=== PATIENT | female | born 1980 | race Hispanic/Latino ===

== ENCOUNTER 2017-05-26 16:40 | Emergency (ER) | payer MEDICARE ==
[~2017-05-26 16:40] MED LIST: ATEN25TA PO; ATOR10 PO; CLON2TAB4 PO; DESL5TAB28 PO; DICL150D4 TP; DULO60CA63 PO; ESTR2TAB PO; HYDR-4068 PO; INSU100C6 SQ; INSU100I4 SQ; LEVO50TA11 PO; LIDOP TP; LITH300T4 PO; LITHIUM PO; METF-527 PO; MONT10TA24 PO; MULT-1203 PO; OMEP20CA10 PO; QUET25TA74 PO
[2017-05-26] MEDS ORDERED: HYOSCYAMINE SULFATE 0.125 MG TAB.SUBL SL ONE (17:58)
[2017-05-26] MEDS ORDERED: LIDOCAINE HCL 2% VISCOUS 15 ML UDCUP ONE (18:01)
[2017-05-26] MEDS ORDERED: MAG HYDROX/AL HYDROX/SIMETH ES 30 ML SUSP UDCUP ONE (18:01)
[2017-05-26 18:08] LABS: EOSINOPHILS % (AUTO) 2.8 % (0.0-8.0); LYMPHOCYTES % (AUTO) 26.9 % (21.0-51.0); MEAN CORPUSCULAR HEMOGLOBIN 29.5 pg (27.0-33.0); MEAN CORPUSCULAR HGB CONC 34.9 g/dL (32.0-36.0); MEAN CORPUSCULAR VOLUME 84.3 fL (79-99); MONOCYTES % (AUTO) 8.4 % (3.0-13.0); NEUTROPHILS % (AUTO) 60.9 % (40.0-77.0); PLATELET COUNT (AUTO) 386 K/uL (130-400); RED BLOOD CELL COUNT(AUTO) 4.15 MIL/uL (4.00-5.50); RED CELL DISTRIBUTION WIDTH 14.3 % (11.0-15.5); WHITE BLOOD COUNT (AUTO) 8.6 K/uL (4.8-10.8)
[2017-05-26 18:16] LABS: APPEARANCE,URINE Clear (CLEAR); BILIRUBIN,URINE Negative (NEGATIVE); COLOR,URINE Yellow (YELLOW); GLUCOSE, URINE (UA) Negative (NEGATIVE); KETONES,URINE Negative (NEGATIVE); LEUKOCYTE ESTERASE ,URINE Negative (NEGATIVE); NITRATE,URINE Negative (NEGATIVE); OCCULT BLOOD,URINE Negative (NEGATIVE); PH,URINE 6.5 (5.0-8.0); PROTEIN,URINE Negative (NEGATIVE); UROBILINOGEN,URINE 0.2 mg/dL (0.2-1.0)
[2017-05-26 18:25] LABS: CREATININE 1.1 mg/dL (0.5-1.5); POTASSIUM 4.5 mmol/L (3.5-5.1)
[2017-05-26 18:29] LABS: ALBUMIN 3.5 g/dL (3.5-5.0); BILIRUBIN,TOTAL 0.2 mg/dL (0.2-1.0); TOTAL PROTEIN, SERUM 6.9 g/dL (6.0-8.3)
[2017-05-26] MEDS ORDERED: ONDANSETRON HCL MDV 20ML 2 MG/ML VIAL ONE ×2 (18:52→20:54)
[2017-05-26] MEDS ORDERED: MORPHINE SULFATE 2 MG/ML 1ML SYG ONE ×2 (18:52→20:55)
[2017-05-26] MEDS ORDERED: IOPAMIDOL-370 75 ML VIAL IV ONE (19:33)
== END 2017-05-26 21:47 | disposition home or self-care (01) ==
LOC: EDH 16:40
DX: R10.11 Right upper quadrant pain (principal); E11.9 Type 2 diabetes mellitus without complications; I10 Essential (primary) hypertension; E78.5 Hyperlipidemia, unspecified; E07.9 Disorder of thyroid, unspecified; G43.909 Migraine, unspecified, not intractable, without status migrainosus; Z88.1 Allergy status to other antibiotic agents; Z88.8 Allergy status to other drugs, medicaments and biological substances
CPT/HCPCS: 36415; 74177; 80053; 81003; 83690; 85025; 96374; 96375; 96376; 99285; Q9967

== ENCOUNTER 2017-11-12 16:21 | Emergency (ER) | payer MEDICARE ==
[~2017-11-12 16:21] MED LIST changes: +CLON2TAB11 PO; -CLON2TAB4 PO
[2017-11-12] MEDS ORDERED: ONDANSETRON HCL 4 MG/2 ML VIAL ONE ×2 (16:41→18:19)
[2017-11-12 16:48] LABS: BASOPHILS % (AUTO) 0.6 % (0.0-5.0); EOSINOPHILS % (AUTO) 1.4 % (0.0-8.0); HEMATOCRIT 38.7 % (36-48); LYMPHOCYTES % (AUTO) 21.3 % (21.0-51.0); MEAN CORPUSCULAR HEMOGLOBIN 28.1 pg (27.0-33.0); MEAN CORPUSCULAR VOLUME 85.1 fL (79-99); MONOCYTES % (AUTO) 8.1 % (3.0-13.0); NEUTROPHILS % (AUTO) 68.6 % (40.0-77.0); NUCLEATED RED BLOOD CELLS 0.1 % (0.0-0.19); PLATELET COUNT (AUTO) 346 K/uL (130-400); RED BLOOD CELL COUNT(AUTO) 4.55 MIL/uL (4.00-5.50); RED CELL DISTRIBUTION WIDTH 13.3 % (11.0-15.5); WHITE BLOOD COUNT (AUTO) 11.8 K/uL (4.8-10.8)
[2017-11-12 17:03] LABS: INR 0.94 (0.85-1.15); PARTIAL THROMBOPLASTIN TIME 26.3 SEC (26.3-35.5); PROTHROMBIN TIME 9.9 SEC (9.6-11.6)
[2017-11-12 17:05] LABS: POTASSIUM 4.4 mmol/L (3.5-5.1)
[2017-11-12] MEDS ORDERED: ASPIRIN 325 MG TABLET ONE (17:09)
[2017-11-12 17:13] LABS: ALBUMIN 3.5 g/dL (3.5-5.0); BILIRUBIN,TOTAL 0.3 mg/dL (0.2-1.0); TOTAL PROTEIN, SERUM 7.4 g/dL (6.0-8.3)
[2017-11-12 17:20] LABS: B-TYPE NATRIURETIC PEPTIDE 19 pg/mL (0-100)
[2017-11-12] MEDS ORDERED: MORPHINE SULFATE 4 MG/1ML SYG ONE (18:19)
== END 2017-11-12 19:32 | disposition home or self-care (01) ==
LOC: EDH 16:21
DX: R07.89 Other chest pain (principal); I10 Essential (primary) hypertension; E78.5 Hyperlipidemia, unspecified; G43.909 Migraine, unspecified, not intractable, without status migrainosus; E11.9 Type 2 diabetes mellitus without complications; E07.9 Disorder of thyroid, unspecified; F41.9 Anxiety disorder, unspecified; F31.9 Bipolar disorder, unspecified; Z88.1 Allergy status to other antibiotic agents; Z88.8 Allergy status to other drugs, medicaments and biological substances; Z91.040 Latex allergy status; Z88.6 Allergy status to analgesic agent; Z90.710 Acquired absence of both cervix and uterus; Z98.890 Other specified postprocedural states
CPT/HCPCS: 36415; 71045; 80053; 82550; 83874; 83880; 84484 ×2; 85025; 85610; 85730; 93005 ×2; 94761; 96374; 96375; 96376; 99285; J2270; J2405 ×2

== ENCOUNTER 2018-02-15 12:49 | Emergency (ER) | payer MEDICARE ==
[2018-02-15] MEDS ORDERED: TETANUS/DIPHTHERIA TOXOID [ADULT] 0.5 ML VIAL IM ONE (12:58)
[2018-02-15] MEDS ORDERED: OCTYL 2-CYANOACRYLATE 1 EACH TP ONE (13:01)
== END 2018-02-15 13:31 | disposition home or self-care (01) ==
LOC: EDH 12:49
DX: S61.412A Laceration without foreign body of left hand, initial encounter (principal); E11.9 Type 2 diabetes mellitus without complications; E78.5 Hyperlipidemia, unspecified; F41.9 Anxiety disorder, unspecified; F31.9 Bipolar disorder, unspecified; G43.909 Migraine, unspecified, not intractable, without status migrainosus; E07.9 Disorder of thyroid, unspecified; Z88.1 Allergy status to other antibiotic agents; Z91.041 Radiographic dye allergy status; Z88.8 Allergy status to other drugs, medicaments and biological substances; W26.8XXA Contact with other sharp object(s), not elsewhere classified, initial encounter; Y93.G3 Activity, cooking and baking; Y92.098 Other place in other non-institutional residence as the place of occurrence of the external cause; Y99.8 Other external cause status
CPT/HCPCS: 12002; 90471; 90714

== ENCOUNTER 2018-03-05 22:22 | Emergency (ER) | payer MEDICARE ==
[2018-03-05] MEDS ORDERED: KETOROLAC TROMETHAMINE 60 MG/2 ML VIAL ONE (23:53)
[2018-03-05] MEDS ORDERED: DIAZEPAM 5 MG TABLET ONE (23:53)
== END 2018-03-06 01:01 | disposition home or self-care (01) ==
LOC: EDH 22:22
DX: S29.012A Strain of muscle and tendon of back wall of thorax, initial encounter (principal); M54.2 Cervicalgia; E11.9 Type 2 diabetes mellitus without complications; E78.5 Hyperlipidemia, unspecified; F41.9 Anxiety disorder, unspecified; F31.9 Bipolar disorder, unspecified; E07.9 Disorder of thyroid, unspecified; G43.909 Migraine, unspecified, not intractable, without status migrainosus; Z88.1 Allergy status to other antibiotic agents; Z91.041 Radiographic dye allergy status; Z90.710 Acquired absence of both cervix and uterus; Z98.890 Other specified postprocedural states; V49.59XA Passenger injured in collision with other motor vehicles in traffic accident, initial encounter; Y93.89 Activity, other specified; Y92.89 Other specified places as the place of occurrence of the external cause; Y99.8 Other external cause status
CPT/HCPCS: 96372; 99283; J1885

== ENCOUNTER 2019-04-19 12:15 | Emergency (ER) | payer MEDICARE ==
[~2019-04-19 12:15] MED LIST changes: -DESL5TAB28 PO; +DESL5TAB45 PO; -DULO60CA63 PO; +DULO60CA64 PO; -MONT10TA24 PO; +MONT10TA26 PO; -OMEP20CA10 PO; +OMEP20CA12 PO
[2019-04-19] MEDS ORDERED: ASPIRIN 325 MG TABLET ONE (12:49)
[2019-04-19 13:04] LABS: BASOPHILS % (AUTO) 0.8 % (0.0-5.0); HEMATOCRIT 39.1 % (36-48); LYMPHOCYTES % (AUTO) 23.1 % (21.0-51.0); MEAN CORPUSCULAR HGB CONC 32.7 g/dL (32.0-36.0); MEAN CORPUSCULAR VOLUME 79.3 fL (79-99); MONOCYTES % (AUTO) 7.6 % (3.0-13.0); NEUTROPHILS % (AUTO) 66.2 % (40.0-77.0); PLATELET COUNT (AUTO) 360 K/uL (130-400); RED BLOOD CELL COUNT(AUTO) 4.93 MIL/uL (4.00-5.50); RED CELL DISTRIBUTION WIDTH 15.3 % (11.0-15.5); WHITE BLOOD COUNT (AUTO) 9.5 K/uL (4.8-10.8)
[2019-04-19 13:05] LABS: CREATININE 1.1 mg/dL (0.5-1.5); POTASSIUM 4.4 mmol/L (3.5-5.1)
[2019-04-19 13:10] LABS: INR 0.93 (0.85-1.15); PARTIAL THROMBOPLASTIN TIME 26.4 SEC (26.3-35.5); PROTHROMBIN TIME 9.8 SEC (9.6-11.6)
[2019-04-19 13:11] LABS: ALBUMIN 3.4 g/dL (3.5-5.0); BILIRUBIN,TOTAL 0.2 mg/dL (0.2-1.0); TOTAL PROTEIN, SERUM 7.4 g/dL (6.0-8.3)
[2019-04-19 13:19] LABS: HCG,QUAL RESULT NEGATIVE (NEGATIVE)
[2019-04-19 13:23] LABS: AMPHET/METH SCREEN,URINE NEGATIVE (NEGATIVE); BARBITURATE SCREEN, URINE NEGATIVE (NEGATIVE); BENZODIAZEPINES SCREEN,URINE NEGATIVE (NEGATIVE); CANNABINOID SCREEN,URINE NEGATIVE (NEGATIVE); COCAINE SCREEN,URINE NEGATIVE (NEGATIVE); OPIATE SCREEN,URINE NEGATIVE (NEGATIVE); PHENCYCLIDINE SCREEN,URINE NEGATIVE (NEGATIVE)
== END 2019-04-19 17:18 | disposition home or self-care (01) ==
LOC: EDH 12:15
DX: R07.89 Other chest pain (principal); R00.1 Bradycardia, unspecified; E11.9 Type 2 diabetes mellitus without complications; F31.9 Bipolar disorder, unspecified; G43.909 Migraine, unspecified, not intractable, without status migrainosus; Z90.49 Acquired absence of other specified parts of digestive tract; Z90.710 Acquired absence of both cervix and uterus; Z88.2 Allergy status to sulfonamides; Z88.1 Allergy status to other antibiotic agents; Z88.6 Allergy status to analgesic agent; Z91.040 Latex allergy status; Z88.7 Allergy status to serum and vaccine
CPT/HCPCS: 36415; 71045; 80053; 80305; 81025; 82550; 84484; 85025; 85378; 85610; 85730; 93005

== ENCOUNTER 2019-04-26 21:29 | Inpatient (IN) | payer MEDICARE ==
[~2019-04-26] VITALS: Ht 172.7 cm; Wt 72.8 kg
[2019-04-26 21:58] LABS: BASOPHILS % (AUTO) 0.8 % (0.0-5.0); EOSINOPHILS % (AUTO) 2.9 % (0.0-8.0); LYMPHOCYTES % (AUTO) 28.8 % (21.0-51.0); MEAN CORPUSCULAR HEMOGLOBIN 25.7 pg (27.0-33.0); MEAN CORPUSCULAR HGB CONC 32.2 g/dL (32.0-36.0); MEAN CORPUSCULAR VOLUME 79.9 fL (79-99); MONOCYTES % (AUTO) 9.6 % (3.0-13.0); NEUTROPHILS % (AUTO) 57.5 % (40.0-77.0); PLATELET COUNT (AUTO) 378 K/uL (130-400); RED BLOOD CELL COUNT(AUTO) 5.13 MIL/uL (4.00-5.50); RED CELL DISTRIBUTION WIDTH 15.3 % (11.0-15.5); WHITE BLOOD COUNT (AUTO) 10.8 K/uL (4.8-10.8)
[2019-04-26 22:14] LABS: INR 0.95 (0.85-1.15)
[2019-04-26 22:30] LABS: CREATININE 1.2 mg/dL (0.5-1.5); POTASSIUM 3.9 mmol/L (3.5-5.1)
[2019-04-26] MEDS ORDERED: ASPIRIN 325 MG TABLET ONE (22:33)
[2019-04-26] MEDS ORDERED: ONDANSETRON HCL 4 MG/2 ML VIAL ONE (22:33)
[2019-04-26 22:34] LABS: ALBUMIN 3.8 g/dL (3.5-5.0); BILIRUBIN,TOTAL 0.2 mg/dL (0.2-1.0); TOTAL PROTEIN, SERUM 7.9 g/dL (6.0-8.3)
[2019-04-26 23:16] LABS: APPEARANCE,URINE Clear (CLEAR); BILIRUBIN,URINE Negative (NEGATIVE); COLOR,URINE Yellow (YELLOW); GLUCOSE, URINE (UA) Negative (NEGATIVE); KETONES,URINE Negative (NEGATIVE); LEUKOCYTE ESTERASE ,URINE Negative (NEGATIVE); NITRATE,URINE Negative (NEGATIVE); OCCULT BLOOD,URINE Negative (NEGATIVE); PH,URINE 6.5 (5.0-8.0); PROTEIN,URINE Negative (NEGATIVE); UROBILINOGEN,URINE 0.2 mg/dL (0.2-1.0)
[2019-04-26 23:39] LABS: MAGNESIUM 1.9 mg/dL (1.80-2.40); THYROID STIMULATING HORMONE 1.71 uIU/mL (0.36-3.74)
[2019-04-27] VITALS (7 sets, daily range): BP systolic 110–139; BP diastolic 56–88
[2019-04-27] MEDS ORDERED: LIDOCAINE HCL-MPF 1% 2ML VIAL IV PRN (00:30)
[2019-04-27] MEDS ORDERED: LACTULOSE 20 GM/30 ML UDCUP PO PRN (00:30)
[2019-04-27] MEDS ORDERED: ONDANSETRON HCL 4 MG/2 ML VIAL IV PRN (00:30)
[2019-04-27] MEDS ORDERED: MORPHINE SULFATE 2 MG/ML 1ML SYG IV PRN (00:30)
[2019-04-27] MEDS ORDERED: POTASSIUM CHLORIDE 20MEQ/100ML 100 ML IV PRN (00:30)
[2019-04-27] MEDS ORDERED: ACETAMINOPHEN 325 MG TAB PO PRN ×2 (00:30)
[2019-04-27] MEDS ORDERED: MAGNESIUM 2GM PREMIX 50ML 50 ML IV PRN (00:30)
[2019-04-27] MEDS ORDERED: POTASSIUM CHLORIDE 10% ELIXIR 20 MEQ/15 ML UDCUP PO PRN (00:30)
[2019-04-27] MEDS: HEPARIN SODIUM 5000UNIT/ML 1ML VIAL SQ SCH ×3 (00:30→23:50)
[2019-04-27] MEDS ORDERED: NITROGLYCERIN 0.4 MG SL TAB SL PRN (00:30)
[2019-04-27] MEDS ORDERED: GLUCAGON 1MG KIT 1 MG ML IM PRN (00:30)
[2019-04-27] MEDS ORDERED: HYDRALAZINE HCL 20 MG/ML VIAL IV PRN (00:30)
[2019-04-27] MEDS ORDERED: POTASSIUM CHLORIDE 20 MEQ ERTAB PO PRN (00:30)
[2019-04-27] MEDS ORDERED: SODIUM CHLORIDE 0.9% 1000ML 1,000 ML IV SCH (00:30)
[2019-04-27] MEDS ORDERED: DEXTROSE 50%-WATER 50 ML DISP.SYRIN IV PRN (00:30)
[2019-04-27] MEDS ORDERED: SODIUM CHLORIDE 0.9% 1000ML 1,000 ML IV ONE (00:53)
[2019-04-27 04:55] LABS: BASOPHILS % (AUTO) 0.7 % (0.0-5.0); EOSINOPHILS % (AUTO) 2.6 % (0.0-8.0); HEMATOCRIT 35.6 % (36-48); LYMPHOCYTES % (AUTO) 32.2 % (21.0-51.0); MEAN CORPUSCULAR HEMOGLOBIN 25.6 pg (27.0-33.0); MONOCYTES % (AUTO) 8.9 % (3.0-13.0); NEUTROPHILS % (AUTO) 55.3 % (40.0-77.0); PLATELET COUNT (AUTO) 349 K/uL (130-400); RED BLOOD CELL COUNT(AUTO) 4.45 MIL/uL (4.00-5.50); RED CELL DISTRIBUTION WIDTH 15.3 % (11.0-15.5); WHITE BLOOD COUNT (AUTO) 9.6 K/uL (4.8-10.8)
[2019-04-27 05:04] LABS: CREATININE 1.7 mg/dL (0.5-1.5); POTASSIUM 4.2 mmol/L (3.5-5.1)
[2019-04-27 05:08] LABS: BILIRUBIN,TOTAL 0.2 mg/dL (0.2-1.0); MAGNESIUM 1.9 mg/dL (1.80-2.40); TOTAL PROTEIN, SERUM 6.4 g/dL (6.0-8.3)
[2019-04-27] MEDS ORDERED: BISA5TAB12 PO (07:29)
[2019-04-27] MEDS ORDERED: ZOLP5TAB8 PO (07:29)
[2019-04-27] MEDS ORDERED: HYDR50CA50 PO (07:29)
[2019-04-27] MEDS ORDERED: BUSP30TA2 PO (07:29)
[2019-04-27] MEDS ORDERED: HYDR-4030 PO (07:29)
[2019-04-27] MEDS ORDERED: LEVO5TAB13 PO (07:29)
[2019-04-27] MEDS ORDERED: GABA-531 PO (07:29)
[2019-04-27] MEDS ORDERED: PALI6TAB PO (07:29)
[2019-04-27] MEDS ORDERED: TRAZ-187 PO (07:29)
[2019-04-27] MEDS ORDERED: METF-444 PO (07:29)
[2019-04-27] MEDS ORDERED: ERGO2000 PO (07:29)
[2019-04-27] MEDS ORDERED: LEVO88TA7 PO (07:29)
[2019-04-27] MEDS ORDERED: DEXL60CA3 PO (07:29)
[2019-04-27] MEDS ORDERED: DOCU100T PO (07:29)
[2019-04-27] MEDS ORDERED: LITH600C PO (07:29)
[2019-04-27] MEDS: INSULIN HUMULIN R 100 UNIT/ML 3ML SQ SCH ×4 (07:30→21:00)
--- NOTE | 2019-04-27 07:40 | NUR ---
ASSESSMENT ENCOUNTERED PT A&OX3, CALM COOPERATIVE AND DOES NOT APPEAR TO BE IN ANY DISTRESS NOR ANY NEURO DEFICITS PRESENT. PT DENIES SOB, NAUSEA BUT DOES HAVE DISCOMFORT TO LEFT LATERAL CHEST, AXILLA AND SHOULDER. PT IS ABLE TO TOLERATE FOODS, FLUIDS AND MEDICATION WITH NO THROAT CLEARING OR COUGH. PT IS AMBULATORY, GAIT STEADY AND STRONG WITH STAND BY ASSIST. CALL LIGHT WITHIN REACH, FAMILY AT BEDSIDE.
[2019-04-27] MEDS ORDERED: FAMOTIDINE 20MG TAB 20 MG TAB PO SCH (09:00)
[2019-04-27] MEDS ORDERED: HYDROXYZINE PAMOATE 50 MG PO SCH ×2 (13:15→21:00)
[2019-04-27] MEDS ORDERED: ERGOCALCIFEROL PO SCH (13:15)
[2019-04-27] MEDS ORDERED: BISACODYL 5 MG TABLET.DR PO PRN (13:15)
[2019-04-27 14:19] LABS: POTASSIUM 4.2 mmol/L (3.5-5.1)
[2019-04-27] MEDS ORDERED: IOHEXOL-350 75 ML VIAL IV ONE (14:29)
--- NOTE | 2019-04-27 15:16 | NUR ---
INITIAL Patient lives with spouse, Garcia Wiseman, [phone]. No home health but does have PHC with [facility] hours. DME: shower chair, nebulizer, wheelchair, cane. Patient needs help with ADL's and does not drive. PCP is Dr. Johny Nielson. Pharmacy is [facility] located on [facility] [address] in [place]. DCP is home. Addendum: 04/27/19 at 1518 by PHILLIP SANCHEZ Amended: Links added.
[2019-04-27] MEDS: ASPIRIN 81MG TAB.CHEW PO SCH (15:34)
[2019-04-27] MEDS: METFORMIN HCL 500 MG TABLET PO SCH (17:57)
[2019-04-27] MEDS ORDERED: GABAPENTIN 300 MG CAPSULE ONE (18:00)
[2019-04-27] MEDS: GABAPENTIN 300 MG CAPSULE PO SCH (18:02)
[2019-04-27] MEDS: BUSPIRONE HCL 30 MG PO SCH (18:04)
[2019-04-27] MEDS: LITHIUM CARBONATE 300 MG PO SCH (18:04)
[2019-04-27] MEDS ORDERED: LITHIUM CARBONATE 300 MG PO SCH (21:00)
[2019-04-27] MEDS: MONTELUKAST SODIUM 10 MG TAB PO SCH (21:06)
[2019-04-27] MEDS: TRAZODONE HCL 100 MG TABLET PO SCH (21:07)
[2019-04-27] MEDS: ZOLPIDEM TARTRATE 5 MG TAB PO SCH (21:07)
[2019-04-27] MEDS: HYDROXYZINE PAMOATE 50 MG PO SCH (21:08)
[2019-04-28 04:06] VITALS: BP 114/77
[2019-04-28 05:46] LABS: POTASSIUM 3.8 mmol/L (3.5-5.1)
[2019-04-28] MEDS: INSULIN HUMULIN R 100 UNIT/ML 3ML SQ SCH ×4 (05:51→20:56)
[2019-04-28] MEDS: LEVOTHYROXINE 88 MCG TABLET PO SCH (05:58)
[2019-04-28] MEDS ORDERED: NON-FORMULARY MEDICATION 1 EACH (Levothyroxine Sodium 88 MCG) PO SCH (07:30)
--- NOTE | 2019-04-28 07:30 | NUR ---
ASSESSMENT ENCOUNTERED PT A&OX3, CALM COOPERATIVE AND DOES NOT APPEAR TO BE IN ANY DISTRESS NOR ANY NEURO DEFICITS PRESENT. PT DENIES SOB, NAUSEA, AND PAIN. PT IS NPO PENDING LEXISCAN. CALL LIGHT WITHIN REACH, FAMILY AT BEDSIDE.
[2019-04-28] MEDS ORDERED: AZEL137S11 NASAL (08:30)
[2019-04-28] MEDS ORDERED: ESTRADIOL 2 MG PO SCH (09:00)
[2019-04-28] MEDS ORDERED: NON-FORMULARY MEDICATION 1 EACH (Docusate Sodium 100 MG) PO SCH (09:00)
[2019-04-28] MEDS ORDERED: LITHIUM CARBONATE 600 MG PO SCH (09:00)
[2019-04-28] MEDS ORDERED: NON-FORMULARY MEDICATION 1 EACH (Levocetirizine Dihydrochloride 5 MG) PO SCH (09:00)
[2019-04-28] MEDS ORDERED: ATORVASTATIN CALCIUM 10 MG TABLET PO SCH (09:00)
[2019-04-28] MEDS: METFORMIN HCL 500 MG TABLET PO SCH ×2 (09:00→21:00)
[2019-04-28 09:01] VITALS: BP 121/78
[2019-04-28] MEDS ORDERED: REGADENOSON 0.4 MG/5 ML PF SYG IVP SCH (10:30)
[2019-04-28 11:00] VITALS: BP 119/77
[2019-04-28] MEDS: ASPIRIN 81MG TAB.CHEW PO SCH (11:33)
[2019-04-28] MEDS: GABAPENTIN 300 MG CAPSULE PO SCH ×2 (11:33→18:24)
[2019-04-28] MEDS: DOCUSATE SODIUM 100 MG CAP PO SCH (11:33)
[2019-04-28] MEDS: LEVOCETIRIZINE 5MG PO SCH (11:35)
[2019-04-28] MEDS: LITHIUM CARBONATE 600 MG CAPSULE PO SCH (11:36)
[2019-04-28] MEDS: ESTRADIOL 2MG PO SCH (11:37)
[2019-04-28] MEDS: BUSPIRONE HCL 30 MG PO SCH ×2 (11:38→18:25)
[2019-04-28] MEDS ORDERED: HYDROXYZINE HCL 25 MG TABLET PO SCH (14:00)
[2019-04-28] MEDS: HYDROXYZINE PAMOATE 50 MG PO SCH ×2 (14:12→22:32)
[2019-04-28 15:00] VITALS: BP 137/89
[2019-04-28] MEDS: LITHIUM CARBONATE 300 MG PO SCH (18:25)
[2019-04-28 18:58] VITALS: BP 105/46
--- NOTE | 2019-04-28 20:30 | NUR ---
PATIENT REQUESTED TO TAKE 2100 MEDS AT 2330 Addendum: 04/28/19 at 2149 by ANTHONY LONG RN RN MEDS AT 2230
[2019-04-28] MEDS ORDERED: ATORVASTATIN CALCIUM 20 MG TABLET PO SCH (21:00)
[2019-04-28] MEDS: HEPARIN SODIUM 5000UNIT/ML 1ML VIAL SQ SCH (21:00)
[2019-04-28] MEDS: ZOLPIDEM TARTRATE 5 MG TAB PO SCH (22:29)
[2019-04-28] MEDS: MONTELUKAST SODIUM 10 MG TAB PO SCH (22:30)
[2019-04-28] MEDS: TRAZODONE HCL 100 MG TABLET PO SCH (22:32)
[2019-04-28 23:28] VITALS: BP 117/69
[2019-04-29] VITALS (9 sets, daily range): BP systolic 105–123; BP diastolic 72–85
[2019-04-29] MEDS: LEVOTHYROXINE 88 MCG TABLET PO SCH (06:12)
[2019-04-29] MEDS: INSULIN HUMULIN R 100 UNIT/ML 3ML SQ SCH ×2 (06:12→11:30)
[2019-04-29] MEDS ORDERED: CLOPIDOGREL BISULFATE 300 MG TAB PO SCH (08:45)
[2019-04-29] MEDS: ASPIRIN 81MG TAB.CHEW PO SCH (08:49)
[2019-04-29] MEDS: HYDROXYZINE PAMOATE 50 MG PO SCH (09:00)
[2019-04-29] MEDS: LITHIUM CARBONATE 600 MG CAPSULE PO SCH (09:00)
[2019-04-29] MEDS: METFORMIN HCL 500 MG TABLET PO SCH (09:00)
[2019-04-29] MEDS: ESTRADIOL 2MG PO SCH (09:00)
[2019-04-29] MEDS: HEPARIN SODIUM 5000UNIT/ML 1ML VIAL SQ SCH (09:00)
[2019-04-29] MEDS: LEVOCETIRIZINE 5MG PO SCH (09:00)
[2019-04-29] MEDS: BUSPIRONE HCL 30 MG PO SCH (09:00)
[2019-04-29] MEDS ORDERED: HEPARIN SODIUM 1000UNIT/ML 10ML VIAL ONE (09:01)
[2019-04-29] MEDS ORDERED: MIDAZOLAM HCL 1 MG/ML 2ML VIAL ONE (09:01)
[2019-04-29] MEDS ORDERED: BIVALIRUDIN 250 MG/VIAL IV ONE (09:01)
[2019-04-29] MEDS ORDERED: IOHEXOL-350 50ML VIAL IV ONE ×2 (09:01→09:51)
[2019-04-29] MEDS ORDERED: IOHEXOL 350 MG/ML 100ML INFUS..BTL IV ONE (09:01)
[2019-04-29] MEDS ORDERED: NITROGLYCERIN 50 MG/D5% WATER 1 BOT ONE (09:02)
[2019-04-29] MEDS ORDERED: LIDOCAINE HCL 2% 20ML ONE (09:02)
[2019-04-29] MEDS ORDERED: SODIUM CHLORIDE 0.9% 1000ML 1,000 ML IV SCH (10:13)
[2019-04-29] MEDS: GABAPENTIN 300 MG CAPSULE PO SCH (11:18)
[2019-04-29] MEDS: DOCUSATE SODIUM 100 MG CAP PO SCH (11:18)
--- NOTE | 2019-04-29 15:53 | NUR ---
DISCHARGE DISCHARGE INSTRUCTIONS GIVEN TO PATIENT, VERBALIZED UNDERSTANDING. PATIENT GIVEN POST CATH PRECAUTIONS. NO SIGNS OF BLEEDING OR HEMATOMA NOTED TO RIGHT FEMORAL SITE, DRESSING DRY AND INTACT. BILATERAL PEDAL PULSES PALPATED. PATIENT INSTRUCTED TO AVOID HEAVY LIFTING AND EXERCISE FOR A COUPLE OF DAYS. NO NEW PRESCRIPTIONS GIVEN. 2 IV'S DISCOTINUED. TELEPAK REMOVED.
[2019-04-30] MEDS ORDERED: ERGOCALCIFEROL (VITAMIN D2) 50,000 UNIT CAPSULE PO SCH (09:00)
== END 2019-04-29 15:54 | disposition home or self-care (01) | DRG 287 ==
LOC: EDH 21:29 → EDHIP 04-27 00:25 → 2AH 04-27 01:07
PROVIDERS: ADMIT Hospitalist; ATTEND Hospitalist
PROC: 4A023N7 Measurement of Cardiac Sampling and Pressure, Left Heart, Percutaneous Approach (ICD-10-PCS; principal; 2019-04-29)
PROC: B2111ZZ Fluoroscopy of Multiple Coronary Arteries using Low Osmolar Contrast (ICD-10-PCS; 2019-04-29)
PROC: B2151ZZ Fluoroscopy of Left Heart using Low Osmolar Contrast (ICD-10-PCS; 2019-04-29)
DX: R07.89 Other chest pain (principal); E03.9 Hypothyroidism, unspecified; G43.909 Migraine, unspecified, not intractable, without status migrainosus; K21.9 Gastro-esophageal reflux disease without esophagitis; E11.9 Type 2 diabetes mellitus without complications; F31.9 Bipolar disorder, unspecified; I44.0 Atrioventricular block, first degree; M79.7 Fibromyalgia; Z91.048 Other nonmedicinal substance allergy status; Z91.040 Latex allergy status; Z88.2 Allergy status to sulfonamides; Z88.8 Allergy status to other drugs, medicaments and biological substances; Z90.710 Acquired absence of both cervix and uterus; Z83.3 Family history of diabetes mellitus; Z82.5 Family history of asthma and other chronic lower respiratory diseases; Z82.49 Family history of ischemic heart disease and other diseases of the circulatory system; Z82.3 Family history of stroke; Z82.0 Family history of epilepsy and other diseases of the nervous system; Z80.9 Family history of malignant neoplasm, unspecified
CPT/HCPCS: 36415; 71045; 71275; 78452; 80048; 80053; 80061; 80178; 81003; 82550; 82948; 83036; 83690; 83735; 83880; 84443; 84484; 85025; 85610; 85730; 93005; 93017; 93306; 93356; 93458; 96374; A9500; C1760; C1894; G0378; J0583; J1644; J2250; J2405; J2785; J3490; J7030; Q9967

== ENCOUNTER 2022-12-10 14:57 | Emergency (ER) | payer MEDICARE ==
[~2022-12-10] VITALS: Ht 167.6 cm; Wt 79.4 kg
[~2022-12-10 14:57] MED LIST changes: -ATEN25TA PO; +AZEL137S11 NASAL; +BISA-151 PO; +BUSP30TA2 PO; -CLON2TAB11 PO; -DESL5TAB45 PO; +DEXL60CA3 PO; -DICL150D4 TP; +DOCU100T PO; -DULO60CA64 PO; +ERGO2000 PO; -ESTR2TAB PO; +ESTR2TAB25 PO; +GABA-531 PO; +HYDR-4030 PO; -HYDR-4068 PO; +HYDR50CA50 PO; -INSU100C6 SQ; -INSU100I4 SQ; -LEVO50TA11 PO; +LEVO5TAB13 PO; +LEVO88TA7 PO; -LIDOP TP; +LITH600C PO; -LITHIUM PO; +METF-444 PO; -METF-527 PO; +MONT-39 PO; -MONT10TA26 PO; -MULT-1203 PO; -OMEP20CA12 PO; +PALI6TAB PO; -QUET25TA74 PO; +TRAZ-187 PO; +ZOLP5TAB8 PO
[2022-12-10] MEDS ORDERED: KETOROLAC 30MG VIAL (30MG/ML) IVP ONE (15:30)
[2022-12-10] MEDS ORDERED: 0.9%NACL 1000ML 1,000 ML IV ONE (15:30)
[2022-12-10] MEDS ORDERED: ONDANSETRON 4MG INJ IVP ONE (15:30)
[2022-12-10] MEDS ORDERED: KETOROLAC 60 MG VIAL (30MG/ML) IM ONE (15:42)
[2022-12-10 15:57] LABS: BASOPHILS # (AUTO) 0.08 K/uL (0.00-0.20); CREATININE 1.4 mg/dL (0.5-1.5); EOSINOPHILS # (AUTO) 0.04 K/uL (0.00-0.70); EOSINOPHILS % (AUTO) 0.5 % (0.0-8.0); HEMATOCRIT 42.4 % (36-48); IMMATURE GRANULOCYTE ABSOLUTE 0.02 K/uL (0-1); LYMPHOCYTES % (AUTO) 25.3 % (21.0-51.0); MEAN CORPUSCULAR HEMOGLOBIN 25.7 pg (27.0-33.0); MEAN CORPUSCULAR HGB CONC 32.1 g/dL (32.0-36.0); MEAN CORPUSCULAR VOLUME 80.2 fL (79-99); MONOCYTES # (AUTO) 0.7 K/uL (0.1-1.0); MONOCYTES % (AUTO) 9.4 % (3.0-13.0); NEUTROPHILS % (AUTO) 63.5 % (40.0-77.0); PLATELET COUNT (AUTO) 322 K/uL (130-400); POTASSIUM 4.6 mmol/L (3.5-5.1); RED BLOOD CELL COUNT(AUTO) 5.29 MIL/uL (4.00-5.50); RED CELL DISTRIBUTION WIDTH 15.5 % (11.0-15.5); WHITE BLOOD COUNT (AUTO) 7.9 K/uL (4.8-10.8)
[2022-12-10 16:03] LABS: BILIRUBIN,TOTAL 0.4 mg/dL (0.2-1.0)
[2022-12-10] MEDS ORDERED: MAGNESIUM HYDROXIDE 30 ML/UDCUP PO STA (16:28)
[2022-12-10] MEDS ORDERED: NA P133E22 RC (16:43)
[2022-12-10] MEDS ORDERED: LACT10SO9 PO (16:43)
[2022-12-10 16:50] LABS: ADD UA MICROSCOPIC YES; APPEARANCE,URINE CLEAR (CLEAR); BILIRUBIN,URINE NEGATIVE (NEGATIVE); COLOR,URINE COLORLESS (YELLOW); GLUCOSE, URINE (UA) NEGATIVE (NEGATIVE); HCG,QUALITATIVE URINE NEGATIVE (NEGATIVE); KETONES,URINE NEGATIVE (NEGATIVE); LEUKOCYTE ESTERASE ,URINE NEGATIVE Leu/uL (NEGATIVE); NITRATE,URINE NEGATIVE (NEGATIVE); OCCULT BLOOD,URINE NEGATIVE (NEGATIVE); PROTEIN,URINE NEGATIVE (NEGATIVE); UROBILINOGEN,URINE 0.2 mg/dL (0.2-1.0)
[2022-12-10 16:51] LABS: BACTERIA,URINE RARE /HPF (None Seen); MUCUS,URINE RARE LPF (None Seen); SQUAMOUS EPITHELIAL CELL,UR RARE /HPF (0-2); WBC,URINE 0-1 /HPF (0-1)
[2022-12-10 17:09] VITALS: BP 128/81; PULSE 78; RESP 16; O2SAT 97
== END 2022-12-10 17:16 | disposition home or self-care (01) ==
LOC: EDH 14:57
DX: K59.00 Constipation, unspecified (principal); F41.9 Anxiety disorder, unspecified; E11.9 Type 2 diabetes mellitus without complications; E78.00 Pure hypercholesterolemia, unspecified; F31.9 Bipolar disorder, unspecified; Z79.84 Long term (current) use of oral hypoglycemic drugs; Z79.899 Other long term (current) drug therapy; Z88.1 Allergy status to other antibiotic agents; Z88.2 Allergy status to sulfonamides
CPT/HCPCS: 99284; 96374; 96361; 96375; 80053; 83690; 85025; 81001; 81025; 36415; 74018; J7030; J2405; J1885

== ENCOUNTER 2022-12-20 13:38 | Emergency (ER) | payer MEDICARE ==
[~2022-12-20] VITALS: Ht 167.6 cm; Wt 79.4 kg
[~2022-12-20 13:38] MED LIST changes: +LACT10SO9 PO; +NA P133E22 RC
[2022-12-20 14:29] LABS: HEMATOCRIT 39.6 % (36-48); MEAN CORPUSCULAR HGB CONC 31.6 g/dL (32.0-36.0); MEAN CORPUSCULAR VOLUME 82.5 fL (79-99); RED BLOOD CELL COUNT(AUTO) 4.8 MIL/uL (4.00-5.50); RED CELL DISTRIBUTION WIDTH 15.2 % (11.0-15.5); WHITE BLOOD COUNT (AUTO) 8.7 K/uL (4.8-10.8)
[2022-12-20 14:30] LABS: APPEARANCE,URINE CLEAR (CLEAR); BILIRUBIN,URINE NEGATIVE (NEGATIVE); COLOR,URINE COLORLESS (YELLOW); GLUCOSE, URINE (UA) NEGATIVE (NEGATIVE); KETONES,URINE NEGATIVE (NEGATIVE); LEUKOCYTE ESTERASE ,URINE NEGATIVE Leu/uL (NEGATIVE); NITRATE,URINE NEGATIVE (NEGATIVE); OCCULT BLOOD,URINE NEGATIVE (NEGATIVE); PH,URINE 5.5 (5.0-8.0); PROTEIN,URINE NEGATIVE (NEGATIVE); UROBILINOGEN,URINE 0.2 mg/dL (0.2-1.0)
[2022-12-20 14:33] LABS: ADD UA MICROSCOPIC YES
[2022-12-20 14:34] LABS: RBC,URINE 0-1 /HPF (0-1); SQUAMOUS EPITHELIAL CELL,UR RARE /HPF (0-2); WBC,URINE 0-1 /HPF (0-1)
[2022-12-20 14:38] LABS: CREATININE 1.2 mg/dL (0.5-1.5); POTASSIUM 4.2 mmol/L (3.5-5.1)
[2022-12-20] MEDS ORDERED: IOHEXOL 350 MG/ML 100ML INFUS..BTL IV ONE (14:47)
[2022-12-20] MEDS ORDERED: METOCLOPRAMIDE 10 MG/2 ML VIAL IVP ONE (15:00)
[2022-12-20] MEDS ORDERED: FAMOTIDINE 20MG VIAL IV ONE (15:00)
[2022-12-20] MEDS ORDERED: KETOROLAC 30MG VIAL (30MG/ML) IVP ONE (15:00)
[2022-12-20] MEDS ORDERED: 0.9%NACL 1000ML 1,000 ML IV ONE (15:00)
[2022-12-20 15:14] LABS: ALBUMIN 3.8 g/dL (3.5-5.0); BILIRUBIN,DIRECT 0.1 mg/dL (0.0-0.3); BILIRUBIN,TOTAL 0.3 mg/dL (0.2-1.0); TOTAL PROTEIN, SERUM 7.8 g/dL (6.0-8.3)
[2022-12-20] MEDS ORDERED: POLY17PO4 PO (16:53)
[2022-12-20 17:20] VITALS: BP 111/80; PULSE 60; RESP 14; O2SAT 99
== END 2022-12-20 17:28 | disposition home or self-care (01) ==
LOC: EDH 13:38
DX: K59.00 Constipation, unspecified (principal); N13.30 Unspecified hydronephrosis; F41.9 Anxiety disorder, unspecified; F31.9 Bipolar disorder, unspecified; E78.00 Pure hypercholesterolemia, unspecified; M79.7 Fibromyalgia; E11.9 Type 2 diabetes mellitus without complications; E03.9 Hypothyroidism, unspecified; Z79.84 Long term (current) use of oral hypoglycemic drugs; Z79.899 Other long term (current) drug therapy; Z88.1 Allergy status to other antibiotic agents; Z88.2 Allergy status to sulfonamides
CPT/HCPCS: 99285; 74178; 96374; 96375; 96361; 80076; 80048; 83690; 85027; 81001; 36415; J3490; J7030; J1885; J2765; Q9967

== ENCOUNTER 2023-04-09 14:56 | Emergency (ER) | payer MEDICARE ==
[~2023-04-09] VITALS: Ht 177.8 cm; Wt 79.4 kg
[~2023-04-09 14:56] MED LIST changes: +POLY17PO4 PO
[2023-04-09 15:39] LABS: BASOPHILS # (AUTO) 0.06 K/uL (0.00-0.20); BASOPHILS % (AUTO) 0.6 % (0.0-5.0); EOSINOPHILS # (AUTO) 0.04 K/uL (0.00-0.70); EOSINOPHILS % (AUTO) 0.4 % (0.0-8.0); HEMATOCRIT 41.9 % (36-48); IMMATURE GRANULOCYTE ABSOLUTE 0.04 K/uL (0-1); LYMPHOCYTES % (AUTO) 20.8 % (21.0-51.0); MEAN CORPUSCULAR HEMOGLOBIN 26.6 pg (27.0-33.0); MEAN CORPUSCULAR HGB CONC 32.7 g/dL (32.0-36.0); MEAN CORPUSCULAR VOLUME 81.4 fL (79-99); MONOCYTES % (AUTO) 9.7 % (3.0-13.0); NEUTROPHILS # (AUTO) 6.7 K/uL (1.8-7.7); NEUTROPHILS % (AUTO) 68.1 % (40.0-77.0); PLATELET COUNT (AUTO) 334 K/uL (130-400); RED BLOOD CELL COUNT(AUTO) 5.15 MIL/uL (4.00-5.50); WHITE BLOOD COUNT (AUTO) 9.8 K/uL (4.8-10.8)
[2023-04-09 15:53] LABS: CREATININE 1.1 mg/dL (0.5-1.5); POTASSIUM 3.7 mmol/L (3.5-5.1)
[2023-04-09 15:58] LABS: BILIRUBIN,TOTAL 0.3 mg/dL (0.2-1.0); TOTAL PROTEIN, SERUM 8.3 g/dL (6.0-8.3)
[2023-04-09 15:59] LABS: INR <= 0.93 (0.85-1.15); PROTHROMBIN TIME 10.1 SEC (9.6-11.6)
[2023-04-09 16:01] LABS: PARTIAL THROMBOPLASTIN TIME 27.3 SEC (26.3-35.5)
[2023-04-09 16:20] LABS: B-TYPE NATRIURETIC PEPTIDE 15 pg/mL (0-100)
[2023-04-09 16:43] LABS: APPEARANCE,URINE CLEAR (CLEAR); BILIRUBIN,URINE NEGATIVE (NEGATIVE); COLOR,URINE COLORLESS (YELLOW); GLUCOSE, URINE (UA) NEGATIVE (NEGATIVE); KETONES,URINE NEGATIVE (NEGATIVE); LEUKOCYTE ESTERASE ,URINE NEGATIVE Leu/uL (NEGATIVE); NITRATE,URINE NEGATIVE (NEGATIVE); OCCULT BLOOD,URINE NEGATIVE (NEGATIVE); PROTEIN,URINE NEGATIVE (NEGATIVE); UROBILINOGEN,URINE 0.2 mg/dL (0.2-1.0)
[2023-04-09 16:49] LABS: ADD UA MICROSCOPIC NO
[2023-04-09] MEDS ORDERED: IOHEXOL-350 75 ML VIAL IV ONE (17:41)
[2023-04-09 18:57] VITALS: BP 117/74; PULSE 78; RESP 16; O2SAT 98
[2023-04-09] MEDS: ASPIRIN 81MG CHEW TAB PO ONE (20:23)
== END 2023-04-09 21:05 | disposition short-term general hospital (02) ==
LOC: EDH 14:56
DX: R20.0 Anesthesia of skin (principal); E03.9 Hypothyroidism, unspecified; E11.9 Type 2 diabetes mellitus without complications; E78.00 Pure hypercholesterolemia, unspecified; F41.9 Anxiety disorder, unspecified; M79.7 Fibromyalgia; R07.89 Other chest pain; Z79.84 Long term (current) use of oral hypoglycemic drugs; Z79.899 Other long term (current) drug therapy; Z86.73 Personal history of transient ischemic attack (TIA), and cerebral infarction without residual deficits; Z88.1 Allergy status to other antibiotic agents; Z88.2 Allergy status to sulfonamides; Z90.710 Acquired absence of both cervix and uterus
CPT/HCPCS: 99285; 82550; 83721; 84484 ×2; 80053; 83880; 85025; 85610; 85730; 82948; 81003; 36415; 71045; 70450; 70496; 70498; 92522; 92610; 93005; Q9967

== ENCOUNTER 2023-06-22 13:31 | Emergency (ER) | payer MEDICARE ==
[~2023-06-22] VITALS: Ht 170.2 cm; Wt 79.4 kg
[2023-06-22 14:16] LABS: APPEARANCE,URINE CLEAR (CLEAR); BILIRUBIN,URINE NEGATIVE (NEGATIVE); COLOR,URINE COLORLESS (YELLOW); GLUCOSE, URINE (UA) NEGATIVE (NEGATIVE); KETONES,URINE NEGATIVE (NEGATIVE); LEUKOCYTE ESTERASE ,URINE NEGATIVE Leu/uL (NEGATIVE); NITRATE,URINE NEGATIVE (NEGATIVE); OCCULT BLOOD,URINE NEGATIVE (NEGATIVE); PROTEIN,URINE NEGATIVE (NEGATIVE); UROBILINOGEN,URINE 0.2 mg/dL (0.2-1.0)
[2023-06-22 14:18] LABS: ADD UA MICROSCOPIC NO
[2023-06-22] MEDS: IBUPROFEN 600 MG TABLET PO ONE (15:52)
[2023-06-22] MEDS ORDERED: CYCL10TA16 PO (16:58)
[2023-06-22] MEDS ORDERED: IBUP-2077 PO (16:58)
[2023-06-22 17:11] VITALS: BP 118/76; PULSE 80; RESP 18; O2SAT 99
== END 2023-06-22 17:09 | disposition home or self-care (01) ==
LOC: EDH 13:31
DX: S39.012A Strain of muscle, fascia and tendon of lower back, initial encounter (principal); E11.9 Type 2 diabetes mellitus without complications; E78.00 Pure hypercholesterolemia, unspecified; E03.9 Hypothyroidism, unspecified; F41.9 Anxiety disorder, unspecified; F31.9 Bipolar disorder, unspecified; M79.7 Fibromyalgia; Z79.84 Long term (current) use of oral hypoglycemic drugs; Z79.899 Other long term (current) drug therapy; Z90.710 Acquired absence of both cervix and uterus; Z98.890 Other specified postprocedural states; Z88.1 Allergy status to other antibiotic agents; Z88.2 Allergy status to sulfonamides; Z88.8 Allergy status to other drugs, medicaments and biological substances; X58.XXXA Exposure to other specified factors, initial encounter; Y93.89 Activity, other specified; Y92.89 Other specified places as the place of occurrence of the external cause; Y99.8 Other external cause status
CPT/HCPCS: 76770; 81003

== ENCOUNTER → 2024-12-01 | Outpatient (CLI) | payer MEDICARE ==
[~2024-12-01] MED LIST changes: +ACET-2806 PO; +ALBU90AE IH; +ALBU90AE3 IH; -BISA-151 PO; +DEXL30CA3 PO; -DEXL60CA3 PO; -DOCU100T PO; -ERGO2000 PO; -ESTR2TAB25 PO; +ESTR42.53 VG; +FAMO20TA8 PO; -HYDR-4030 PO; -LACT10SO9 PO; +LEVO50CA5 PO; -LEVO5TAB13 PO; -LEVO88TA7 PO; +LINA145C PO; -LITH300T4 PO; -LITH600C PO; +MELA3CAP2 PO; -METF-444 PO; +METF-445 PO; +METH-811 PO; +MUPIROCIN TP; -NA P133E22 RC; +PALI3TAB PO; -POLY17PO4 PO; +SITA100T12 PO; -TRAZ-187 PO; +TRAZ300T2 PO; +ZOLP5TAB16 PO; -ZOLP5TAB8 PO; +epi pen IM; +voltaren TP
== END | disposition home or self-care (01) ==
LOC: RAH 11-16 15:01
PROVIDERS: ATTEND Obstetrics & Gynecology
DX: Z12.31 Encounter for screening mammogram for malignant neoplasm of breast (principal)
CPT/HCPCS: 77063; 77067